=== PATIENT | female | born 1975 | race Hispanic/Latino ===

== ENCOUNTER 2017-12-13 14:19 | Emergency (ER) | payer BC, OTHER ==
[2017-12-13 14:28] VITALS: BP 112/73; PULSE 89; RESP 17; TEMP 98.2; O2SAT 96
[2017-12-13] MEDS ORDERED: Tdap Vaccine 0.5 ml Vial (10-64 yrs) IM ONE ×3 (14:36→15:06)
--- NOTE | 2017-12-13 14:47 | C.PDOC ---
History Of Present Illness 42-year-old female, presents to the emergency department with complaints of a laceration to the distal aspect of left third digit on hand, sustained while cleaning her home. She denies any other injuries. Patient reports her last tetanus was >5years. Time Seen by Provider: 12/13/17 14:26 Chief Complaint (Nursing): Abnormal Skin Integrity History Per: Patient History/Exam Limitations: no limitations Past Medical History Reviewed: Historical Data, Nursing Documentation, Vital Signs Vital Signs: Last Vital Signs Temp 98.2 F 12/13/17 14:21 Pulse 89 12/13/17 14:21 Resp 17 12/13/17 14:21 BP 112/73 12/13/17 14:21 Pulse Ox 96 12/13/17 18:28 - Medical History PMH: Anxiety, Hypothyroidism, Malignancy (Breast) Family History: States: No Known Family Hx - Social History Hx Tobacco Use: No Hx Alcohol Use: No Hx Substance Use: No - Immunization History Hx Tetanus Toxoid Vaccination: No Hx Influenza Vaccination: Yes Hx Pneumococcal Vaccination: No Review Of Systems Constitutional: Negative for: Fever, Chills Gastrointestinal: Negative for: Nausea, Vomiting Neurological: Negative for: Weakness, Numbness Physical Exam - Physical Exam Appears: Non-toxic, No Acute Distress Skin: Normal Color, Warm, Dry, No Rash, Other (Left upper extremity: 3rd digit with 1cm laceration to distal vilar phalanx) Head: Atraumatic Eye(s): bilateral: Normal Inspection Nose: Normal Oral Mucosa: Moist Lips: Normal Appearing Neck: Normal ROM Respiratory: No Accessory Muscle Use (no acute respiratory distress) Extremity: Normal ROM, No Deformity, No Swelling Extremity: Bilateral: Other (fdp, fds and extensor tendon intact ) Neurological/Psych: Oriented x3, Normal Speech ED Course And Treatment O2 Sat by Pulse Oximetry: 96 (RA) Pulse Ox Interpretation: Normal Laceration - Laceration Repair Left hand 3rd digit Wound Length (In cm): 1 Description Of Wound: Linear Wound Cleansed With: Betadine, Sterile Saline Wound Examination: No FB With Wound Exploration, No Tendon Injury With Wound Exploration Wound Closure: Steri Strips, Skin Glue (dermabond) Wound Complexity: Simple Medical Decision Making Medical Decision Making: Tetanus administered. Disposition Counseled Patient/Family Regarding: Studies Performed, Diagnosis - Disposition Disposition: HOME/ ROUTINE Disposition Time: 14:47 Condition: STABLE Additional Instructions: keep wound dry wound check in 2 days return to ER immediately if symptoms worsens Instructions: Laceration Repair With Glue (DC) Forms: [facility] (Pashto), General Discharge Instructions - Clinical Impression Clinical Impression: Laceration of finger - Scribe Statement The provider has reviewed the documentation as recorded by the Scribe (Gwen Walden) All medical record entries made by the Scribe were at my direction and personally dictated by me. I have reviewed the chart and agree that the record accurately reflects my personal performance of the history, physical exam, medical decision making, and the department course for this patient. I have also personally directed, reviewed, and agree with the discharge instructions and disposition.
== END 2017-12-13 15:14 | disposition home or self-care (01) ==
LOC: C.ER 14:19
DX: S61.213A Laceration without foreign body of left middle finger without damage to nail, initial encounter (principal); X58.XXXA Exposure to other specified factors, initial encounter; Y93.E9 Activity, other interior property and clothing maintenance; Y92.009 Unspecified place in unspecified non-institutional (private) residence as the place of occurrence of the external cause

== ENCOUNTER 2018-09-18 11:01 | Outpatient (CLI) | payer OTHER | END 2018-09-18 11:02 | disposition home or self-care (01) | LOC: C.LAB 11:01 | DX: Z01.84 Encounter for antibody response examination (principal) ==